=== PATIENT | female | born 1995 | race Asian ===

== ENCOUNTER 2022-03-03 13:00 | Emergency (ER) | payer OTHER ==
[~2022-03-03] VITALS: Ht 170.2 cm; Wt 57.2 kg
--- NOTE | 2022-03-03 14:06 | NUR ---
URINE SAMPLE COLLECTED
--- NOTE | 2022-03-03 14:06 | NUR ---
DR ALBARRAN AT BEDSIDE FOR EVAL
--- NOTE | 2022-03-03 14:15 | NUR ---
NO NORCO [phone] PER PHARMACY; DR ALBARRAN MADE AWARE, WILL CHANGE ORDER.
[2022-03-03] MEDS ORDERED: DIAZEPAM 5 MG TABLET ONE (14:17)
[2022-03-03] MEDS ORDERED: HYDROCODONE/APAP 10/325MG TABLET ONE (14:17)
[2022-03-03] MEDS ORDERED: HYDROCODONE/APAP 7.5/325MG 1 EACH TABLET PO ONE (14:30)
[2022-03-03] MEDS ORDERED: LIDOCAINE 5% (PATCH) 1 EA PATCH TP SCH (14:30)
[2022-03-03] MEDS ORDERED: DIAZEPAM 5 MG TABLET PO ONE (14:30)
[2022-03-03] MEDS ORDERED: HYDROCODONE/APAP 10/325MG TABLET PO ONE (14:30)
--- NOTE | 2022-03-03 15:16 | NUR ---
WAIVER SIGNED BY PT; PT TAKEN TO RADIOLOGY FOR CT.
--- NOTE | 2022-03-03 15:20 | NUR ---
PT TAKEN TO RADIOLOGY VIA [facility]
[2022-03-03] MEDS ORDERED: KETOROLAC TROMETHAMINE INJ 30 MG/ML VIAL ONE (15:43)
[2022-03-03] MEDS ORDERED: CYCLOBENZAPRINE 10 MG TABLET ONE (15:44)
[2022-03-03] MEDS ORDERED: CYCLOBENZAPRINE 10 MG TABLET PO ONE (16:00)
[2022-03-03] MEDS ORDERED: KETOROLAC TROMETHAMINE INJ 60 MG/2 ML VIAL IM ONE (16:00)
--- NOTE | 2022-03-03 17:52 | NUR ---
WITING ON MRI IF AVAILABLE TO COME IN PER [facility]. HE'LL CALL US BACK FOR UPDATE
--- NOTE | 2022-03-03 19:22 | NUR ---
PT TAKEN TO MRI TRAILER BY [email or web address] VIA WHEELCHAIR
--- NOTE | 2022-03-03 20:10 | NUR ---
PT RETURN FROM MRI VIA WHEELCHAIR.
[2022-03-03] MEDS ORDERED: METHOCARBAMOL (500MG) 500 MG TABLET ONE (20:50)
[2022-03-03] MEDS ORDERED: METHOCARBAMOL (500MG) 500 MG TABLET PO ONE (21:00)
[2022-03-03] MEDS ORDERED: CYCL10TA9 PO ×3 (22:31→22:47)
--- NOTE | 2022-03-03 22:59 | NUR ---
Patient discharged to home in stable condition with family. RX Written and verbal after care instructions given. Patient verbalizes understanding of instruction.
[2022-03-04 01:13] VITALS: BP 104/62
== END 2022-03-03 22:59 | disposition home or self-care (01) ==
LOC: ER 13:05
DX: M54.50 Low back pain, unspecified (principal)
CPT/HCPCS: 99284; 72148; 72131; 96372; 72192; 84703; J1885